=== PATIENT | male | born 1965 | race Caucasian/White ===

== ENCOUNTER 2023-04-23 11:52 | Inpatient (IN) | payer OTHER ==
[2023-04-23 12:50] VITALS: BMI 22.3
[2023-04-23] MEDS ORDERED: METHOCARBAMOL 500 MG TABLET ONE (13:39)
[2023-04-23] MEDS ORDERED: METHOCARBAMOL 500 MG TABLET PO PRN (15:38)
[2023-04-23] MEDS ORDERED: NALOXONE HCL 0.4 MG/ML VIAL IM PRN (15:38)
[2023-04-23] MEDS ORDERED: NALOXONE HCL (KLOXXADO) 8 MG SPRAY NS PRN (15:38)
[2023-04-23] MEDS ORDERED: ACETAMINOPHEN 325 MG TABLET (FP) PO PRN (15:38)
[2023-04-23] MEDS ORDERED: POLYETHYLENE GLYCOL (HEALTHYLAX) 3350 17 GM PACKET PO PRN (15:38)
[2023-04-23] MEDS ORDERED: BENZOCAINE/MENTHOL (CHLORASEPTIC ) LOZENGE MM PRN (15:38)
[2023-04-23] MEDS ORDERED: ONDANSETRON *ODT* 4 MG TABLET SL PRN (15:38)
[2023-04-23] MEDS ORDERED: IBUPROFEN 400 MG TABLET (FP) PO PRN (15:38)
[2023-04-23] MEDS ORDERED: NICOTINE POLACRILEX 2 MG GUM BUC PRN (15:38)
[2023-04-23] MEDS ORDERED: hydrOXYzine PAMOATE 25 MG CAPSULE (FP) PO PRN (15:38)
[2023-04-23] MEDS ORDERED: IBUPROFEN 600 MG TABLET (FP) PO PRN (15:38)
[2023-04-23] MEDS ORDERED: BENZONATATE 200 MG CAPSULE PO PRN (15:38)
[2023-04-23] MEDS ORDERED: LOPERAMIDE HCL 2 MG CAPSULE PO PRN (15:38)
[2023-04-23] MEDS ORDERED: MAGNESIUM HYDROX 2400MG/30ML ORAL SUSPENSION 30 ML CUP PO PRN (15:38)
[2023-04-23] MEDS ORDERED: MAG HYDROX/AL HYDROX/SIMETH 30 ML UNIT-DOSE CUP PO PRN (15:38)
[2023-04-23] MEDS ORDERED: guaiFENesin 600 MG TABLET.ER (FP) PO PRN (15:38)
[2023-04-23] MEDS ORDERED: BISMUTH SUBSALICYLATE 524 MG/30 ML PO PRN (15:38)
[2023-04-23] MEDS: THIAMINE HCL 100 MG TABLET (FP) PO SCH (22:28)
[2023-04-23] MEDS: MELATONIN 5 MG TABLETS PO SCH (22:28)
[2023-04-24] MEDS: NICOTINE 14 MG/24 HOURS TOPICAL PATCH TD SCH (10:26)
[2023-04-24] MEDS: PRENATAL VITAMINS W/ FOLIC ACID TABLET (FP) PO SCH (10:26)
[2023-04-24 10:36] LABS: CHLORIDE 108 mmol/L (98-107); POTASSIUM 3.9 mmol/L (3.5-5.1); SODIUM 140 mmol/L (136-145)
[2023-04-24 10:41] LABS: ALBUMIN 3.2 g/dl (3.4-5.0); ANION GAP 3 mmol/L (4-13); BLOOD UREA NITROGEN 13.8 mg/dL (7-18); CALCIUM 8.6 mg/dL (8.5-10.1); CO2 29 mmol/L (21-32); GLUCOSE,RANDOM 77 mg/dL (74-106)
[2023-04-24 10:43] LABS: SGPT/ALT 19 U/L (13-61)
[2023-04-24 10:44] LABS: CREATININE 0.8 mg/dL (0.55-1.3); SGOT/AST 18 U/L (15-37)
[2023-04-24 10:45] LABS: BILIRUBIN,TOTAL 0.9 mg/dL (0.2-1)
[2023-04-24 10:47] LABS: ALK PHOS 58 U/L (45-117)
[2023-04-24 10:51] LABS: HEMATOCRIT 42.6 % (35.4-49); HEMOGLOBIN 14.3 GM/dL (11.7-16.9); MCH 31.4 pg (25.7-33.7); MCHC 33.7 g/dl (32.0-35.9); MEAN CELL VOLUME 93.4 fl (80-96); MEAN PLT VOLUME 6.4 fl (7.5-11.1); PLATELET COUNT 272 10^3/uL (134-434); RBC 4.55 M/mm3 (4.00-5.60); RDW 13.7 % (11.9-15.9); WHITE BLOOD COUNT 7.4 K/mm3 (4.0-10.0)
[2023-04-24 11:01] LABS: TOT PROT 6.2 g/dl (6.4-8.2)
[2023-04-24] MEDS: THIAMINE HCL 100 MG TABLET (FP) PO SCH (22:17)
[2023-04-24] MEDS: MELATONIN 5 MG TABLETS PO SCH (22:17)
[2023-04-25] MEDS: PRENATAL VITAMINS W/ FOLIC ACID TABLET (FP) PO SCH (10:16)
[2023-04-25] MEDS: NICOTINE 14 MG/24 HOURS TOPICAL PATCH TD SCH (10:16)
[2023-04-25 12:38] VITALS: BP 107/66; PULSE 83; RESP 16; TEMP 98.2
== END 2023-04-25 13:05 | disposition home or self-care (01) | DRG 897 ==
LOC: YASAS 11:52 → Y3N 16:45
PROVIDERS: ADMIT Allergy & Immunology; ATTEND Surgery
PROC: HZ2ZZZZ Detoxification Services for Substance Abuse Treatment (ICD-10-PCS; principal; 2023-04-23)
DX: F10.230 Alcohol dependence with withdrawal, uncomplicated (principal); F17.210 Nicotine dependence, cigarettes, uncomplicated; F31.9 Bipolar disorder, unspecified; Z62.810 Personal history of physical and sexual abuse in childhood; Z56.0 Unemployment, unspecified; Z59.00 Homelessness unspecified; Z28.310 Unvaccinated for COVID-19; Z28.9 Immunization not carried out for unspecified reason
CPT/HCPCS: 36415; 80053; 80307; 85027; 86780; 87635; 87811; 93005; 93010